=== PATIENT | male | born 1985 | race Caucasian/White ===

== ENCOUNTER 2016-12-16 19:51 | Emergency (ER) | payer OTHER ==
[2016-12-16 19:57] VITALS: BP 130/79
--- NOTE | 2016-12-16 21:00 | UC ---
Back Pain HPI - HPI Summary HPI Summary: complaint of bacjk pain that started this evening' was walking up the stauirs and was changing his clothes left lumabr pain that is non radiating took 2 acetaminophen with some relief can't fid a comfortable position pain is woesened with most movement nothing lessens the pain denies fever , incontinence, unitnetional weight loss in the last year - History of Current Complaint Chief Complaint: UCBackPain Stated Complaint: LOWER BACK PAIN Time Seen by Provider: 12/16/16 20:49 Hx Obtained From: Patient - Allergies/Home Medications Allergies/Adverse Reactions: Allergies Allergy/AdvReac Type Severity Reaction Status Date / Time No Known Allergies Allergy Verified 12/16/16 19:57 Home Medications: Home Medications PARoxetine HCL TAB* [Paxil TAB*] 30 mg PO DAILY 12/16/16 [History Confirmed 10/28] PMH/Surg Hx/FS Hx/Imm Hx Previously Healthy: Yes Psychological History: Anxiety - Surgical History Surgical History: None - Family History Known Family History: Negative: Cardiac Disease, Hypertension, Diabetes - Social History Occupation: Employed Full-time Lives: With Family Alcohol Use: Rare Substance Use Type: None Smoking Status (MU): Never Smoked Tobacco Review of Systems Constitutional: Negative Skin: Negative Eyes: Negative ENT: Negative Respiratory: Negative Cardiovascular: Negative Gastrointestinal: Negative Genitourinary: Negative Motor: Negative Neurovascular: Negative Musculoskeletal: Other: - lower back pain Neurological: Negative Psychological: Negative All Other Systems Reviewed And Are Negative: Yes Physical Exam Triage Information Reviewed: Yes Appearance: No Pain Distress, Well-Nourished Vital Signs: Initial Vital Signs Temp 98.4 F 12/16/16 19:53 Pulse 106 12/16/16 19:53 Resp 20 12/16/16 19:53 BP 130/79 12/16/16 19:53 Pulse Ox 100 12/16/16 19:53 Vital Signs Reviewed: Yes Eyes: Positive: Conjunctiva Clear ENT: Positive: Pharynx normal, TMs normal Neck: Positive: No Lymphadenopathy Respiratory: Positive: Lungs clear, Normal breath sounds, No respiratory distress, No accessory muscle use Cardiovascular: Positive: RRR, No Murmur, Pulses Normal, Brisk Capillary Refill Abdomen Description: Positive: Nontender, Soft Bowel Sounds: Positive: Present Musculoskeletal: Positive: Other: - Spine have no noted deformities or signs of inflammation. Curvature of thoracic, and lumbar spine are within normal limits. Bony features of shoulders and hips are of equal height bilaterally. Posture is upright, and gait is smooth and normal. Spinous processes of T1-L5 palpable, midline, and non-tender; No step-offs. left lumbar paraspinal tenderness. Flexion, extension, and rotation of the remaining spinal column is within normal limits. Patient can flex forward and reach toes with minimal pain. Lateral bending causes no discomfort when bending to the right and left side. Neurological: Positive: Alert, Other: - SLR negative, patellar reflexes intact Psychological Exam: Normal Skin Exam: Normal Back Pain Course/Dx - Course Course Of Treatment: no red flags to warrant imaging - Differential Dx/Diagnosis Differential Diagnosis/HQI/PQRI: Herniated Disc, Strain, Sprain Provider Diagnoses: lower back pain Discharge - Discharge Plan Condition: Stable Disposition: HOME Patient Education Materials: Low Back Strain (ED) Referrals: [facility] [place] [facility]FERR[facility] [Outside] Additional Instructions: Start baclofen as directed. Do not drink alcohol or drive while taking baclofen. Please call physical therapy for further evaluation and treatment. Take ibuprofen for fever or pain. Increase fluids and rest. Please review your discharge instructions. If your symptoms do not improve please call your primary care provider or return to urgent care.
[2016-12-16] MEDS ORDERED: Cyclobenzaprine TAB* 10 MG PO ONE (21:12)
== END 2016-12-16 21:34 | disposition home or self-care (01) ==
LOC: UCEAST 19:51
DX: M54.5 Low back pain (principal)
CPT/HCPCS: 99212; A9270-GY; G0463